=== PATIENT | male | born 1955 | race Hispanic/Latino ===

== ENCOUNTER → 2020-11-24 | Outpatient (CLI) | payer OTHER | END | disposition home or self-care (01) | LOC: RAH 16:09 | PROVIDERS: ATTEND Internal Medicine Cardiovascular Disease | DX: Z13.6 Encounter for screening for cardiovascular disorders (principal) | CPT/HCPCS: 75571 ==

== ENCOUNTER → 2023-12-26 | Outpatient (CLI) | payer OTHER | END | disposition home or self-care (01) | LOC: OIH 07:50 | PROVIDERS: ATTEND Internal Medicine | DX: Z13.6 Encounter for screening for cardiovascular disorders (principal) | CPT/HCPCS: 75571 ==

== ENCOUNTER → 2025-01-06 | Outpatient (CLI) | payer MEDICARE, OTHER ==
--- NOTE | 2025-01-06 14:17 | HMCIMG ---
CT LUMBAR SPINE W/O CONTRAST HISTORY: Radiculopathy COMPARISON: None TECHNIQUE: Multiple sequential axial images of the lumbar spine were obtained including post processing sagittal and coronal reconstruction images. Patient was not given contrast through intravenous route. FINDINGS: Endplate degenerative changes are seen with disc space narrowing at the L5-S1 level. There is no loss of vertebral height. Evaluation for disc and cord pathology is limited with CT study. No evidence of fracture or dislocation is seen. There are mild degenerative changes with lumbar spine spondylosis. Mild annular disc bulges with ligamentum flavum hypertrophy is seen at L2-3 through L5-S1 level with mild central canal narrowing and moderate foraminal stenosis worse at L5-S1 level. IMPRESSION: 1. No fracture is seen. DJD lumbar spine spondylosis as described above. CT was performed with one or more following dose reduction techniques: automated exposure control, adjustment of the mA and kv according to patient's size, or use of a iterative reconstruction technique.
== END | disposition home or self-care (01) ==
LOC: RAH 12:51
PROVIDERS: ATTEND Physical Medicine & Rehabilitation
DX: M47.26 Other spondylosis with radiculopathy, lumbar region (principal); M47.818 Spondylosis without myelopathy or radiculopathy, sacral and sacrococcygeal region; M51.16 Intervertebral disc disorders with radiculopathy, lumbar region; M48.07 Spinal stenosis, lumbosacral region; M53.3 Sacrococcygeal disorders, not elsewhere classified
CPT/HCPCS: 72131

== ENCOUNTER → 2025-03-25 | Outpatient (CLI) | payer MEDICARE ==
--- NOTE | 2025-03-25 14:52 | HMCIMG ---
EXAM: CR Lumbar Spine, 4 View. CLINICAL HISTORY: RADICULOPATHY, LUMBAR REGION COMPARISON: None provided. FINDINGS: The lumbar alignment is within normal limits. There is straightening of the lumbar spine that may reflect paraspinal muscle spasm. There is severe disc disease at L5-S1. Lumbar spondylosis evident by small anterior osteophytes and syndesmophytes at multiple levels. Vertebral body heights are maintained with no displaced fracture. There is no listhesis or radiographic evidence of dynamic instability. IMPRESSION: 1. No acute osseous injury. 2. Severe disc disease at L5-S1. 3. Multilevel lumbar spondylosis with straightening of the lumbar spine, possibly reflecting muscle spasm. /[place]
== END | disposition home or self-care (01) ==
LOC: RAH 10:25
PROVIDERS: ATTEND Physical Medicine & Rehabilitation
DX: M51.16 Intervertebral disc disorders with radiculopathy, lumbar region (principal); M47.26 Other spondylosis with radiculopathy, lumbar region; M51.379 Other intervertebral disc degeneration, lumbosacral region without mention of lumbar back pain or lower extremity pain
CPT/HCPCS: 72114